=== PATIENT | male | born 1940 | race Caucasian/White ===

== ENCOUNTER 2019-05-04 10:20 | Emergency (ER) | payer MEDICARE, OTHER ==
[2019-05-04] MEDS ORDERED: SODIUM CHLORIDE 0.9% 1000ML 1,000 ML IV ONE (10:29)
[2019-05-04 10:33] LABS: BASOPHILS % (AUTO) 1 % (0-3); EOSINOPHILS % (AUTO) 1 % (0-9); HEMATOCRIT 43 % (39-53); HEMOGLOBIN 13.6 gm/dl (13.5-17.7); LYMPHOCYTES % (AUTO) 17.4 % (10-50); MEAN CORPUSCULAR HEMOGLOBIN 26.9 pg (27.0-32.0); MEAN CORPUSCULAR HGB CONC 31.8 gm/dl (32.0-36.0); MEAN CORPUSCULAR VOLUME 84 fL (80-100); MONOCYTES % (AUTO) 5.8 % (0-12); NEUTROPHILS % (AUTO) 75.2 % (37-80)
[2019-05-04 10:36] VITALS: TEMP 98.1
[2019-05-04 10:41] LABS: INR 1.02 (0.86-1.12)
[2019-05-04 10:48] LABS: ALKALINE PHOSPHATASE 105 IU/L (46-116); ALT 31 IU/L (14-63); AST 24 IU/L (15-37); BILIRUBIN,TOTAL 0.8 mg/dl (0.2-1.0); BLOOD UREA NITROGEN 18 mg/dl (7-18); CALCIUM 9.2 mg/dl (8.5-10.1); CARBON DIOXIDE 28.3 mEq/L (21-32); CHLORIDE 105 mMol/L (98-107); CREATININE 1.08 mg/dl (0.80-1.30); GLUCOSE 125 mg/dl (74-106); POTASSIUM 3.3 mMol/L (3.5-5.1); SODIUM 140 mMol/L (136-145); TOTAL PROTEIN 7.7 gm/dl (6.4-8.2); TROP I < 0.017 ng/ml (0.000-0.056)
[2019-05-04] MEDS ORDERED: ALTEPLASE, RECOMBINANT 50 MG PDS IV ONE (11:01)
[2019-05-04] MEDS ORDERED: POTASSIUM CHLORIDE 10 MEQ TER PO ONE (11:39)
[2019-05-04] MEDS ORDERED: POTASSIUM CHLORIDE 10 MEQ TER ONE (11:40)
[2019-05-04 11:47] VITALS: PULSE 84; RESP 16
[2019-05-04 12:00] VITALS: BP 163/98; O2SAT 98
== END 2019-05-04 12:00 | disposition short-term general hospital (02) | DRG 69 ==
LOC: ED 10:20
DX: G45.9 Transient cerebral ischemic attack, unspecified (principal); R29.700 NIHSS score 0; R40.2362 Coma scale, best motor response, obeys commands, at arrival to emergency department; R40.2142 Coma scale, eyes open, spontaneous, at arrival to emergency department; R40.2252 Coma scale, best verbal response, oriented, at arrival to emergency department
CPT/HCPCS: 36415; 70450; 80053; 84484; 85025; 85610; 85730; 93005; 99291; J2997; A9270-GY